=== PATIENT | female | born 1995 | race Caucasian/White ===

== ENCOUNTER 2019-05-30 21:51 | Observation (INO) ==
[2019-05-30 22:29] LABS: Microscopic, Urine URINE MICROSCOPIC (MICROSCOPIC)
[2019-05-30 22:30] LABS: Appearance,Urine SL CLOUDY (Clear); Bilirubin,Urine Negative (Negative); Blood, Urine Negative (Negative); Color,Urine YELLOW (Yellow); Glucose,Urine (UA) Negative (Negative); Ketones,Urine Negative (Negative); Leukocyte Esterase,Urine TRACE (Negative); PH,Urine 7.5 (5.0-8.5); Protein,Urine Negative (Negative); Specific Gravity, Urine 1.015 (1.005-1.030); Urobilinogen,Urine 0.2 EU/dl (0.2)
[2019-05-30 22:34] LABS: Amorphous Sediment,Urine 4+ /lpf
[2019-05-30 22:39] LABS: Basophils % 0.3 % (0.1-2.0); Eosinophils # 0.3 K/mm3 (0.0-0.4); Eosinophils % 2.1 % (0.1-12.0); Hematocrit 42.2 % (37.0-47.0); Hemoglobin 13.7 g/dL (12.2-16.2); Lymphocytes # 1.8 K/mm3 (0.7-4.5); Lymphocytes % 14.2 % (10-50); Mean Corpuscular HGB Conc 32.4 g/dL (31.8-35.4); Mean Corpuscular Volume 97.1 fl (81-99); Mean Platelet Volume 9.9 fl (7.4-10.4); Monocytes # 0.5 K/mm3 (0.1-1.0); Monocytes % 4.3 % (1.7-9.3); Neutrophils # 9.8 K/mm3 (1.8-7.8); Neutrophils % 79.1 % (37.0-80.0); Platelet Count 208 K/mm3 (142-424); Red Blood Count 4.35 M/mm3 (4.20-5.40); Red Cell Distribution Width 11.9 % (11.5-17.5); White Blood Count 12.3 K/mm3 (4.8-10.8)
[2019-05-30 22:46] LABS: Albumin Level 4.8 g/dl (3.5-5.0); Albumin/Globulin Ratio 1.8 (1.1-1.8); Anion Gap 12.6 mEq/L (5-15); Bilirubin,Total 0.7 mg/dl (0.2-1.3); Calcium 9.6 mg/dl (8.4-10.2); Globulin 2.7 g/dL (1.3-3.2); Total Protein,Serum 7.5 g/dl (6.3-8.2)
[2019-05-30 22:52] LABS: C-Reactive Protein 43.4 mg/L (0-4)
--- NOTE | 2019-05-30 23:36 | Emergency Department Note ---
ED Disposition Clinical Impression: Acute appendicitis Qualifiers: Acute appendicitis type: unspecified acute appendicitis type Qualified Code(s): K35.80 - Unspecified acute appendicitis Disposition: Admitted As Inpatient Condition on Discharge: Good Instructions: DI for Acute Abdomen Referrals: Provider,Referral, [Primary Care Provider] - - Critical Care Critical Care Time: No Attestation: On 05/30/19, the high probability of a clinically significant, sudden or life threatening deterioration of the following system(s) required my full and direct attention, intervention and personal management. The time I documented below is in addition to time spent performing reported procedures but includes the following listed in this critical care notation. Medical Decision Making - Medical Records Medical records reviewed: Yes: I reviewed the patient's medical records. - Hakeem Inquiry Pt receiving controlled substance: No Vital Signs: 05/30/19 22:08 Temperature 98.1 F Temperature Source Oral Pulse Rate [Left Brachial] 100 H Respiratory Rate 16 Blood Pressure [Right Arm] 139/96 H Blood Pressure Mean [Right Arm] 110 Blood Pressure Source [Right Arm] Automatic Cuff Blood Pressure Position [Right Arm] Sitting 02 Sat by Pulse Oximetry 100 Oxygen Delivery Method Room Air - Lab Data Lab results reviewed: Yes: I reviewed the patient's lab results. Lab Results 05/30/19 21:56: Urine Color Yellow, Urine Appearance Sl cloudy, Urine pH 7.5, Ur Specific [place] 1.015, Urine Protein Negative, Urine Glucose (UA) Negative, Urine Ketones Negative, Urine Blood Negative, Urine Nitrate Negative, Urine Bilirubin Negative, Urine Urobilinogen 0.2, Ur Leukocyte Esterase Trace, Urine WBC 3-5, Ur Squamous Epith Cells 3-5, Amorphous Sediment 4+ 05/30/19 21:56: Urine HCG, Qual Negative 05/30/19 22:30: WBC 12.3 H, RBC 4.35, Hgb 13.7, Hct 42.2, MCV 97.1, MCH 31.5 H, MCHC 32.4, RDW 11.9, Plt Count 208, MPV 9.9, Neut % (Auto) 79.1, Lymph % (Auto) 14.2, [place] % (Auto) 4.3, Eos % (Auto) 2.1, Baso % (Auto) 0.3, Neut # (Auto) 9.8 H, Lymph # (Auto) 1.8, [place] # (Auto) 0.5, Eos # (Auto) 0.3, Baso # (Auto) 0.0 05/30/19 22:30: Sodium 138, Potassium 3.6, Chloride 101, Carbon Dioxide 28, Anion Gap 12.6, BUN 18 H, Creatinine 0.90, Estimated Creat Clear 95, Estimated GFR 78, Est GFR ( Amer) 95, Glucose 125 H, Calcium 9.6, Total Bilirubin 0.7, AST 25, ALT 19, Alkaline Phosphatase 48, C-Reactive Protein 43.4 H, Total Protein 7.5, Albumin 4.8, Globulin 2.7, Albumin/Globulin Ratio 1.8, Amylase 54, Lipase 28 05/30/19 22:30: ESR 17 Result diagrams: 05/30/19 22:30 05/30/19 22:30 Orders (Tests/Meds): ED MEDICATIONS Generic Name Dose Route Start Last Admin Trade Name Freq PRN Reason Stop Dose Admin Sodium Chloride 1,000 mls @ 999 mls/hr 05/30/19 22:30 05/30/19 22:29 Sod Chlor 0.9% 1000ml Bag IV 05/30/19 23:30 999 mls/hr .Q1H1M ANI Administration Sodium Chloride 8 ml 05/30/19 22:20 Sodium Chloride 0.9% 10ml Vial IV 06/29/19 22:19 NEEDED PRN dilute pepcid Discontinued Medications Generic Name Dose Route Start Last Admin Trade Name Freq PRN Reason Stop Dose Admin Famotidine 20 mg 05/30/19 22:20 05/30/19 22:29 Pepcid 20mg/2ml Vial IV 05/30/19 22:21 20 mg ONCE ONE Administration Ioversol 75 ml 05/30/19 23:19 05/30/19 23:20 Rad-Optiray 350 100ml Vial IV 05/30/19 23:20 75 ml ONCE ONE Administration Protocol Ketorolac Tromethamine 30 mg 05/30/19 22:22 05/30/19 22:29 Toradol 30mg/Ml Vial IV 05/30/19 22:23 30 mg ONCE ONE Administration Metoclopramide HCl 10 mg 05/30/19 22:20 05/30/19 22:29 Reglan 10mg/2ml Vial IVP 05/30/19 22:21 10 mg ONCE ONE Administration Sodium Chloride 10 ml 05/30/19 23:19 05/30/19 23:20 Rad-Saline Flush 10ml Syringe IV 05/30/19 23:20 10 ml ONCE ONE Administration ORDERS Category Date Time Status CT abdomen pelvis w con Stat Cat Scan 05/30/19 22:18 Taken - CT Data CT Scan: Abdomen, Pelvis Time Received: 23:[address] Reviewed: Yes: I have viewed the radiologist's interpretation Preliminary Findings: Abnormal (acute appendecitis ) - Physician Consults Physician Consulted: lilli Reason -: Admission Nausea/Vomiting/Diarrhea HPI - General Chief complaint: Abdominal Pain Stated complaint: Right side pain Time Seen by Provider: 05/30/19 23:00 Mode of Arrival: Ambulatory Source of Information: Patient, Medical Record Limitations: No Limitations Description of Symptoms (Recalled from ER Triage Doc. by RN): pt states achy, throbbing, lower abd pain. guarding on palpation pt rating 8/10 - History of Present Illness HPI Narrative: progressive abd pain with tender rt lower abd - no vomiting - MD complaint: nausea, abdominal pain Onset (ago): day(s) Associated Abdominal Pain: Yes Location of pain: RLQ Quality: constant Consistency: constant Associated symptoms: denies other symptoms - Related Data Home Medications Medication Instructions Recorded Confirmed Medroxyprogesterone Acetate 150 mg IM DIRECTED 05/30/19 05/30/19 [Depo-Provera] Allergies Allergy/AdvReac Type Severity Reaction Status Date / Time No Known Allergies Allergy Verified 05/30/19 22:18 [facility] History - Hepatitis A Screen Drug use history?: No High risk sexual behaviors?: No History of sexually transmitted infection?: No Currently employed?: No Childcare worker?: No Do you have indoor plumbing?: Yes Do you have electricity?: Yes Attestation statement:: This patient has been screened for Hepatitis A risk factors. I have reviewed the patient's past medical history: Yes - Social History Educational Level: Completed College Smoking Status: Never smoker Alcohol Intake: never Substance Use Type: marijuana Last Used Substance: unknown Occupational Status: employed ROS Obtained: Yes All systems reviewed & no additional complaints - Constitutional Constitutional: Denies fever(s) - Eyes Eyes: Denies change in vision - ENT Ears, Nose, Mouth, and Throat: Denies sore throat - Cardiovascular Cardiovascular: Denies chest pain - Respiratory Respiratory: No cough - Gastrointestinal Gastrointestingal: Reports: as per HPI, abdominal pain, nausea. Denies: vomiting - Genitourinary Female Genitourinary: Denies hematuria - Musculoskeletal Musculoskeletal: Denies joint pain - Integumentary/Breasts Skin/Breast: Denies rash - Neurologic Neurologic: Denies focal weakness, Denies seizure-like activity Physical Exam - General General appearance: alert, in no apparent distress - Head Head exam: normocephalic - Eye Eye exam: Present: PERRL, EOMI. Absent: scleral icterus - ENT ENT exam: Present: mucous membranes moist - Neck Neck exam: Present: trachea midline - Respiratory Respiratory exam: Absent: respiratory distress - Cardiovascular Cardiovascular exam: Present: regular rate - Abdominal Exam Abdominal exam: Present: soft, tenderness, guarding, tenderness at McBurney's Point. Absent: rebound, rigidity Abdominal tenderness: Present: RLQ, moderate - Extremities Exam Extremities exam: Present: full ROM - Neurological Exam Neurological exam: Present: alert, oriented X3, CN II-XII intact - Psychiatric Psychiatric exam: Present: normal affect - Skin Skin exam: Absent: rash
--- NOTE | 2019-05-31 06:29 | History & Physical Report ---
*Admission Date: 05/30/19 *Chief complaint: Abdominal pain *History of present illness: Patient is a pleasant healthy 24-year-old female. She states that 2 days ago she had some mild nausea. Yesterday she had developed some lower abdominal pain. This was progressively more severe and located in the right lower quadrant and suprapubic location. Due to its persistence and progression she presented to the emergency department in the late evening of 05/30/2019. She was seen and evaluated and work-up included CT scan which revealed findings consistent with non-complicated acute appendicitis. She was admitted for inpatient management and planned appendectomy. [facility] History *Have you ever received a pneumonia vaccine?: No *Have you received a flu vaccine this season?: No - *Social History Educational Level: Completed High School Smoking Status: Never smoker Alcohol Intake: current Alcohol Intake Frequency:: 0-2 drinks per day Substance Use Type: marijuana Last Used Substance: unknown *Occupational Status:: employed *Travel in the last 8 weeks: None Family Hx:: Cancer, Hypertension Review of Systems - Review of Systems Review of systems:: pertinent systems reviewed and negative unless documented below - *Neurologic Denies localized weakness, Denies seizure-like activity Meds Home Medications Medication Instructions Recorded Confirmed Type Medroxyprogesterone Acetate 150 mg IM DIRECTED 05/30/19 05/30/19 History [Depo-Provera] Allergies Allergy/AdvReac Type Severity Reaction Status Date / Time No Known Allergies Allergy Verified 05/30/19 22:18 Exam Vital signs and Labs for Last 24 Hours: Temp Pulse Resp BP Pulse Ox 97.9 F 85 18 110/56 L 100 05/31/19 05:49 05/31/19 05:49 05/31/19 05:49 05/31/19 05:49 05/31/19 05:49 Laboratory Results - last 24 hr 05/30/19 21:56: Urine Color Yellow, Urine Appearance Sl cloudy, Urine pH 7.5, Ur Specific [place] 1.015, Urine Protein Negative, Urine Glucose (UA) Negative, Urine Ketones Negative, Urine Blood Negative, Urine Nitrate Negative, Urine Bilirubin Negative, Urine Urobilinogen 0.2, Ur Leukocyte Esterase Trace, Urine WBC 3-5, Ur Squamous Epith Cells 3-5, Amorphous Sediment 4+ 05/30/19 21:56: Urine HCG, Qual Negative 05/30/19 22:30: WBC 12.3 H, RBC 4.35, Hgb 13.7, Hct 42.2, MCV 97.1, MCH 31.5 H, MCHC 32.4, RDW 11.9, Plt Count 208, MPV 9.9, Neut % (Auto) 79.1, Lymph % (Auto) 14.2, [place] % (Auto) 4.3, Eos % (Auto) 2.1, Baso % (Auto) 0.3, Neut # (Auto) 9.8 H, Lymph # (Auto) 1.8, [place] # (Auto) 0.5, Eos # (Auto) 0.3, Baso # (Auto) 0.0 05/30/19 22:30: Sodium 138, Potassium 3.6, Chloride 101, Carbon Dioxide 28, Anion Gap 12.6, BUN 18 H, Creatinine 0.90, Estimated Creat Clear 95, Estimated GFR 78, Est GFR ( Amer) 95, Glucose 125 H, Calcium 9.6, Total Bilirubin 0.7, AST 25, ALT 19, Alkaline Phosphatase 48, C-Reactive Protein 43.4 H, Total Protein 7.5, Albumin 4.8, Globulin 2.7, Albumin/Globulin Ratio 1.8, Amylase 54, Lipase 28 05/30/19 22:30: ESR 17 I & O for Last 24 hours: Intake & Output 05/28/19 05/29/19 05/30/19 05/31/19 11:59 11:59 11:59 11:59 Intake Total 1621 / 1621 Output Total 550 / 550 Balance 1071 / 1071 Weight 140 lb 9 oz - *Routine HEENT Exam Head: Present: normocephalic Eye: Present: EOMI, PERRL ENT: Present: mucous membranes moist - *Routine Neck Exam Present: supple. Absent: lymphadenopathy - *Routine Respiratory Exam Present: CTA bilaterally - *Routine Cardiovascular Exam Present: RRR - *Routine Abdominal Exam Present: soft, normoactive bowel sounds, tenderness Comments: Patient does have some tenderness in the right lower quadrant with voluntary guarding. - *Routine Extremities Exam Absent: cyanosis, clubbing, edema - *Routine Skin Exam Present: warm. Absent: rash - *Routine Neurological Exam Present: alert, oriented X3 Assessment and Plan - Assessment and plan all Dx Assessment and Plan for all problems:: Plan for laparoscopic possible open appendectomy.
[2019-05-31 07:40] LABS: Basophils % 0.3 % (0.1-2.0); Eosinophils # 0.1 K/mm3 (0.0-0.4); Eosinophils % 0.8 % (0.1-12.0); Hematocrit 38.4 % (37.0-47.0); Hemoglobin 12.9 g/dL (12.2-16.2); Lymphocytes # 1.2 K/mm3 (0.7-4.5); Lymphocytes % 11.1 % (10-50); Mean Corpuscular HGB Conc 33.6 g/dL (31.8-35.4); Mean Corpuscular Volume 95.5 fl (81-99); Monocytes # 0.5 K/mm3 (0.1-1.0); Monocytes % 4.8 % (1.7-9.3); Platelet Count 208 K/mm3 (142-424); Red Blood Count 4.02 M/mm3 (4.20-5.40); Red Cell Distribution Width 11.9 % (11.5-17.5); White Blood Count 10.9 K/mm3 (4.8-10.8)
[2019-05-31 07:50] LABS: Anion Gap 12.7 mEq/L (5-15); Calcium 9.3 mg/dl (8.4-10.2)
--- NOTE | 2019-05-31 08:14 | Operative Note ---
Date of procedure: 05/31/19 Pre-op Diagnosis:: Acute appendicitis Post-op Diagnosis:: Same Procedure performed:: Laparoscopic appendectomy Surgeon:: Saul Pink MD THREAD DRAWER:: Mark Cordero Anesthesia: NUBIA Estimated blood loss (mL): 5 Clinical Note:: Patient is a pleasant healthy 24-year-old female. She states that 2 days ago she had some mild nausea. Yesterday she had developed some lower abdominal pain. This was progressively more severe and located in the right lower quadrant and suprapubic location. Due to its persistence and progression she presented to the emergency department in the late evening of 05/30/2019. She was seen and evaluated and work-up included CT scan which revealed findings consistent with non-complicated acute appendicitis. She was admitted for inpatient management and planned appendectomy. Operative findings:: She had an acutely inflamed somewhat suppurative nonnecrotic acute appendicitis. There is some reactive fluid in the pelvis. Operative note:: Consent was obtained and patient was taken to the operating room. She was positioned in a supine position. General anesthesia was induced via endotracheal tube. Her abdomen was prepped and draped in the standard surgical fashion. Subumbilical skin incision was made and while performing abdominal wall lift Veress needle was inserted. CO2 pneumoperitoneum was achieved to 15 mmHg. 12 mm optical trocar was inserted at the umbilicus. 5 mm trocar was inserted in the suprapubic location and an additional 5 mm trocar was inserted in the right upper abdomen. The appendix was covered with omentum as acute inflammatory adhesions. This was taken down exposing the appendix. Appendix was distended and inflamed and mildly suppurative. It was grasped with an endoscopic Yosef. The mesoappendix was carefully divided with RASHAD ultrasonic harmonic terrie with care taken to coagulate the appendiceal artery and the process. Dissection was carried down to the appendiceal base which was relatively noninflamed. The appendix was divided at its base with an endoscopic TAMMY linear cutting stapling device. The appendix was placed within an Endo Catch retrieval device and removed from the peritoneal cavity via the umbilical trocar site which required some minor stretching of the fascial incision for delivery. Laparoscopic surveillance was then carried out. Reactive fluid in the pelvis was suctioned free. Limited irrigation was performed of the pericecal region and pelvis as well as suprahepatic space. Appendiceal staple line was inspected for hemostasis and integrity which was assured. There was good hemostasis. Trochars were then removed as CO2 pneumoperitoneum was evacuated. Fascia at the umbilicus was closed with a couple of 0 Vicryl sutures. Local anesthetic was infiltrated. Skin incisions were closed with 4-0 Monocryl in a subcuticular fashion. Steri-Strips and dressings were applied. Condition: stable Disposition: PACU Specimens:: Appendix Complications:: None immediately apparent
--- NOTE | 2019-05-31 08:19 | Progress Note ---
[facility] Anesthesia Record Part I Intake, IV Amount: 1,100 Estimated blood loss (mL): 10 Urine output (mL): 100 Blood Pressure: 155/84 SaO2: 99 Pulse Rate: 96 Respiratory Rate: 16 Temperature: 97.9 F Patient is:: Drowsy, Stable Stable to PACU at:: 08:10
--- NOTE | 2019-05-31 08:19 | Progress Note ---
[facility] Anesthesia Checklist - Patient Identification Patient Identification: Arm Band - Structural Data Admitted From: Home Planned Operative Procedure/s: laparoscopic appendectomy Consent for Planned Operative Procedure(s) Verified: Yes Verified Documents: Surgical Consent, History and Physical - NPO Status Verified Time NPO: 00:00 - Additional verifications Anesthesia Reactions: No - Airway Assessment C-Spine Mobility Assessed: Yes (mp2) TMJ Mobility Assessed: Yes Dentition: Good Dentition - Neurological Assessment Level of Consciousness: Awake, Alert - Anesthesia Plan Anesthesia Risk discussed: Yes Anesthesia Plan: Verified ASA Class: I (e) Anesthesia Type: General [facility] History I have reviewed the patient's past medical history: Yes *Have you ever received a pneumonia vaccine?: No *Have you received a flu vaccine this season?: No Anesthesia experience/problems:: nac Other Surgeries: Yes: Other - *Social History Educational Level: Completed High School Smoking Status: Never smoker Alcohol Intake: current Alcohol Intake Frequency:: 0-2 drinks per day Substance Use Type: marijuana Last Used Substance: unknown *Occupational Status:: employed *Travel in the last 8 weeks: None Family Hx:: Cancer, Hypertension
--- NOTE | 2019-05-31 09:05 | Pharmacy Consult Notes ---
[facility] Pharmacy VTE Monitoring - Patient Demographics Admission date: 05/31/19 Report Date: 05/31/19 Time: 09:05 Allergies/Adverse Reactions: Patient Allergies No Known Allergies Allergy (Verified 05/30/19 22:18) Height: 1.7 m Weight: 63.758 kg Patient Problems: Current Active Problems Acute appendicitis (Acute) - VTE Risk Labs: VTE Related Lab Results Hgb 12.9 g/dL (12.2-16.2) 05/31/19 06:48 Hct 38.4 % (37.0-47.0) 05/31/19 06:48 Plt Count 208 K/mm3 (142-424) 05/31/19 06:48 BUN 12 mg/dl (7-17) D 05/31/19 06:48 Creatinine 0.80 mg/dl (0.52-1.04) 05/31/19 06:48 Estimated Creat Clear 111 mL/min (50-200) 05/31/19 06:48 VTE Score: 1 VTE Risk Level: Very Low Risk - Prophylaxis VTE Prophylaxis Ordered?: Yes Types of VTE Prophylaxis: TEDS Knee High Location of Applied Device: Bilateral Lower Extremeties
--- NOTE | 2019-05-31 09:46 | Progress Note ---
[facility] Anesthesia Record Part II Discharge Time: 08:40 Destination: Medical Surgical Department PACU nurse assessment reviewed?: Yes Patient Condition:: Good Anesthesia Complications:: None Swallowing reflex intact?: Yes Cyanosis?: No Blood Pressure: 124/75 Pulse Rate: 64 Temperature: 97.8 F Mental Status: Alert & Oriented Pain level:: 5 Nausea and/or vomitting:: None Intake, IV Amount: 0
== END 2019-05-31 17:50 | disposition home or self-care (01) ==
LOC: 2ND 21:51 → ER 21:51 → 2ND 05-31 00:19
PROVIDERS: ADMIT Surgery; ATTEND Surgery
DX: K35.890 Other acute appendicitis without perforation or gangrene
CPT/HCPCS: 36415; 74177; 80048; 80053; 81001; 81025; 82150; 83690; 85025; 85651; 86140; 96365; 96367; 96375; 99284; G0378; J0330; J2405; J2710; Q9967